=== PATIENT | male | born 1950 | race Caucasian/White ===

== ENCOUNTER 2017-02-26 19:42 | Inpatient (IN) | payer MEDICARE ==
[~2017-02-26] VITALS: Ht 182.9 cm; Wt 70.4 kg
[~2017-02-26 19:42] MED LIST: ASPI-621 PO; ATOR20TA9 PO; CARV25TA12 PO; CARV3.1212 PO; DOXY100T PO; FLUT1AER INH; FURO-92 PO; LISI-170 PO; METH4TAB2 PO; PRED20TA PO; SPIR1TAB PO; asprin PO
[2017-02-26] MEDS ORDERED: ALBUTEROL SULFATE 2.5 MG/3 ML NPPB ONE (20:00)
[2017-02-26] MEDS ORDERED: ASPIRIN 81 MG TABLET CHEW PO ONE (20:00)
[2017-02-26] MEDS ORDERED: ASPIRIN 81 MG TABLET CHEW ONE (20:16)
[2017-02-26 20:20] LABS: BLOOD UREA NITROGEN 25 mg/dL (7-18)
[2017-02-26 20:24] LABS: IS PT STATUS REG ER OR PRE ER? YES
[2017-02-26] MEDS ORDERED: SODIUM CHLORIDE FLUSH 10ML SYR IVF PRN (22:00)
[2017-02-26] MEDS ORDERED: CARV-39 PO (22:29)
[2017-02-26] MEDS ORDERED: HYDROCORTISONE 100 MG INJ. IVPush SCH (22:30)
[2017-02-26] MEDS ORDERED: LABETALOL 5MG/ML, 20ML IVPush PRN (23:00)
[2017-02-26] MEDS ORDERED: ACETAMINOPHEN 325 MG TABLET PO PRN (23:00)
[2017-02-26] MEDS: methylPREDNISolone SOD SUCC 40 MG/ML IVPush SCH (23:00)
[2017-02-26] MEDS ORDERED: DOCUSATE 100 MG CAPSULE PO PRN (23:00)
[2017-02-26] MEDS ORDERED: TEMAZEPAM 15 MG CAPSULE PO PRN (23:00)
[2017-02-26] MEDS: NICOTINE 7 MG/24 HR PATCH.TD24 TD SCH (23:56)
[2017-02-27] MEDS: CARVEDILOL 3.125 MG TABLET PO SCH ×3 (00:09→21:20)
[2017-02-27] MEDS: ENOXAPARIN 40 MG/0.4 ML SQ SCH ×2 (00:10→21:21)
[2017-02-27 00:26] VITALS: BP 142/88
[2017-02-27] MEDS ORDERED: ALBUTEROL/IPRATROPIUM 2.5MG/0.5MG, 3 ML ONE (00:38)
[2017-02-27 02:37] LABS: BLOOD UREA NITROGEN 24 mg/dL (7-18)
[2017-02-27 02:46] VITALS: BP 133/88
[2017-02-27 03:02] LABS: IS PT STATUS REG ER OR PRE ER? NO
[2017-02-27] MEDS: ALBUTEROL/IPRATROPIUM 2.5MG/0.5MG, 3 ML NPPB SCH ×4 (07:00→21:25)
[2017-02-27 08:00] VITALS: BP 135/84
[2017-02-27 08:33] LABS: IS PT STATUS REG ER OR PRE ER? NO
[2017-02-27] MEDS: LISINOPRIL 20 MG TABLET PO SCH (08:49)
[2017-02-27] MEDS: PANTOPROZOLE 40MG TABLET PO SCH (08:49)
[2017-02-27] MEDS: ASPIRIN 81 MG TABLET EC PO SCH (08:49)
[2017-02-27] MEDS: SPIRONOLACT/HCTZ 25/25MG TABLET PO SCH (08:49)
[2017-02-27] MEDS: FUROSEMIDE 40 MG/4 ML IV SCH (08:50)
[2017-02-27] MEDS ORDERED: FUROSEMIDE 40 MG TABLET PO SCH (09:00)
[2017-02-27] MEDS: FLUTICASONE/VILANTEROL 100-25MCG/INH INH SCH (11:47)
[2017-02-27] MEDS: methylPREDNISolone SOD SUCC 40 MG/ML IVPush SCH ×2 (11:48→21:20)
[2017-02-27 12:45] VITALS: BP 121/64
[2017-02-27] MEDS ORDERED: MAGNESIUM SULFATE PMX 2GM/50ML 50 ML IV ONE (13:30)
[2017-02-27] MEDS: ALUMINUM/MAG/SIMETHICONE 30 ML UDC PO PRN (18:01)
[2017-02-27 18:51] VITALS: BP 123/78
[2017-02-27] MEDS ORDERED: ATORVASTATIN 20 MG TABLET PO SCH (21:00)
[2017-02-27] MEDS: NICOTINE 7 MG/24 HR PATCH.TD24 TD SCH (21:20)
[2017-02-28 01:09] VITALS: BP 135/90
[2017-02-28] MEDS: ALUMINUM/MAG/SIMETHICONE 30 ML UDC PO PRN (01:17)
[2017-02-28 05:42] LABS: ASPARTATE AMINO TRANSFERASE 7 U/L (15-37); BLOOD UREA NITROGEN 35 mg/dL (7-18)
[2017-02-28] MEDS: PANTOPROZOLE 40MG TABLET PO SCH (06:47)
[2017-02-28 07:00] VITALS: BP 125/81
[2017-02-28] MEDS: ALBUTEROL/IPRATROPIUM 2.5MG/0.5MG, 3 ML NPPB SCH ×3 (07:00→14:07)
[2017-02-28] MEDS: FUROSEMIDE 40 MG/4 ML IV SCH (08:54)
[2017-02-28] MEDS: SPIRONOLACT/HCTZ 25/25MG TABLET PO SCH (08:55)
[2017-02-28] MEDS: ASPIRIN 81 MG TABLET EC PO SCH (08:55)
[2017-02-28] MEDS: FLUTICASONE/VILANTEROL 100-25MCG/INH INH SCH (08:55)
[2017-02-28] MEDS: CARVEDILOL 3.125 MG TABLET PO SCH (08:55)
[2017-02-28] MEDS: LISINOPRIL 20 MG TABLET PO SCH (08:55)
[2017-02-28] MEDS: methylPREDNISolone SOD SUCC 40 MG/ML IVPush SCH (11:24)
[2017-02-28] MEDS ORDERED: ALBU2.5V NEB (12:13)
[2017-02-28] MEDS ORDERED: SPIR1TAB PO (12:13)
[2017-02-28] MEDS ORDERED: FLUT1AER INH (12:13)
[2017-02-28] MEDS ORDERED: IPRA3AMP NPPB (12:13)
[2017-02-28] MEDS ORDERED: LISI-170 PO (12:13)
[2017-02-28] MEDS ORDERED: PRED10TA PO (12:13)
[2017-02-28] MEDS ORDERED: CARV3.1212 PO (12:13)
[2017-02-28] MEDS ORDERED: ATOR20TA9 PO (12:13)
[2017-02-28] MEDS ORDERED: MAGN400T26 PO (12:17)
== END 2017-02-28 15:34 | disposition home or self-care (01) | DRG 190 ==
LOC: ED 21:19 → EDIP 22:48 → 5SO 23:22
PROVIDERS: ADMIT Internal Medicine; ATTEND Internal Medicine
DX: J44.1 Chronic obstructive pulmonary disease with (acute) exacerbation (principal); I50.23 Acute on chronic systolic (congestive) heart failure; E87.1 Hypo-osmolality and hyponatremia; I47.2 Ventricular tachycardia; J96.10 Chronic respiratory failure, unspecified whether with hypoxia or hypercapnia; I11.0 Hypertensive heart disease with heart failure; J44.0 Chronic obstructive pulmonary disease with (acute) lower respiratory infection; E78.5 Hyperlipidemia, unspecified; F17.210 Nicotine dependence, cigarettes, uncomplicated; Z96.641 Presence of right artificial hip joint; I25.10 Atherosclerotic heart disease of native coronary artery without angina pectoris; I45.10 Unspecified right bundle-branch block; J20.9 Acute bronchitis, unspecified; Z79.82 Long term (current) use of aspirin; Z91.19 Patient's noncompliance with other medical treatment and regimen; Z99.81 Dependence on supplemental oxygen; Z71.6 Tobacco abuse counseling; Z82.49 Family history of ischemic heart disease and other diseases of the circulatory system
CPT/HCPCS: 36415; 71020; 80048; 80053; 82040; 83735; 83880; 84484; 85025; 93005; 94640; J1650; J1940; J7613; J7620; J1720; J2920; J3475; J7512

== ENCOUNTER 2017-03-17 13:54 | Inpatient (IN) | payer MEDICARE ==
[~2017-03-17] VITALS: Ht 182.9 cm; Wt 70.5 kg
[~2017-03-17 13:54] MED LIST changes: +ALBU2.5V NEB; +CARV-39 PO; +IPRA3AMP NPPB; +MAGN400T26 PO; +PRED10TA PO
[2017-03-17] MEDS ORDERED: LORazepam 1MG TABLET PO ONE (14:30)
[2017-03-17] MEDS ORDERED: ASPIRIN 81 MG TABLET CHEW PO ONE (14:30)
[2017-03-17 15:08] LABS: BLOOD UREA NITROGEN 38 mg/dL (7-18)
[2017-03-17 15:16] LABS: IS PT STATUS REG ER OR PRE ER? YES
[2017-03-17] MEDS ORDERED: LORazepam 1MG TABLET ONE (15:17)
[2017-03-17] MEDS ORDERED: ASPIRIN 81 MG TABLET CHEW ONE (15:17)
[2017-03-17] MEDS ORDERED: FURO40TA6 PO (15:28)
[2017-03-17] MEDS ORDERED: FUROSEMIDE 40 MG/4 ML ONE (16:26)
[2017-03-17] MEDS ORDERED: ENALAPRILAT 1.25 MG/ML, 2ML IVPush PRN (16:30)
[2017-03-17] MEDS ORDERED: ALBUTEROL SULFATE 2.5 MG/3 ML NPPB PRN (16:30)
[2017-03-17] MEDS ORDERED: DOCUSATE 100 MG CAPSULE PO PRN (16:30)
[2017-03-17] MEDS ORDERED: FUROSEMIDE 40 MG/4 ML IV ONE (16:30)
[2017-03-17] MEDS ORDERED: ONDANSETRON ODT 4 MG PO PRN (16:30)
[2017-03-17] MEDS ORDERED: GUAIFENESIN/DM 200-20MG, 10ML UDC PO PRN (16:30)
[2017-03-17] MEDS ORDERED: TRAZODONE 50MG TABLET PO PRN (16:30)
[2017-03-17] MEDS ORDERED: ENOXAPARIN 80 MG/0.8 ML SQ ONE ×2 (16:30→20:00)
[2017-03-17] MEDS ORDERED: ALBUTEROL SULFATE 2.5 MG/3 ML NEB PRN (17:00)
[2017-03-17 17:41] LABS: IS PT STATUS REG ER OR PRE ER? YES
[2017-03-17] MEDS ORDERED: ALBUTEROL/IPRATROPIUM 2.5MG/0.5MG, 3 ML NPPB SCH (20:00)
[2017-03-17 20:17] VITALS: BP 116/82
[2017-03-17] MEDS: FUROSEMIDE 20 MG TABLET PO SCH (20:20)
[2017-03-17] MEDS: ATORVASTATIN 20 MG TABLET PO SCH (20:20)
[2017-03-17] MEDS: NICOTINE 7 MG/24 HR PATCH.TD24 TD SCH (20:21)
[2017-03-17] MEDS: methylPREDNISolone SOD SUCC 125 MG/2 ML IVPush SCH (20:21)
[2017-03-17] MEDS: CARVEDILOL 3.125 MG TABLET PO SCH (20:21)
[2017-03-17] MEDS ORDERED: ENOXAPARIN 60 MG/0.6 ML SQ ONE (21:00)
[2017-03-18 00:03] LABS: IS PT STATUS REG ER OR PRE ER? NO
[2017-03-18 02:07] VITALS: BP 113/84
[2017-03-18] MEDS: ASPIRIN 325 MG TABLET EC PO SCH (04:42)
[2017-03-18] MEDS: methylPREDNISolone SOD SUCC 125 MG/2 ML IVPush SCH ×3 (04:42→20:10)
[2017-03-18 06:03] LABS: BLOOD UREA NITROGEN 39 mg/dL (7-18); IS PT STATUS REG ER OR PRE ER? NO
[2017-03-18 07:19] VITALS: BP 119/80
[2017-03-18] MEDS: LISINOPRIL 20 MG TABLET PO SCH (08:34)
[2017-03-18] MEDS: FUROSEMIDE 20 MG TABLET PO SCH ×2 (08:34→20:10)
[2017-03-18] MEDS: CARVEDILOL 3.125 MG TABLET PO SCH ×2 (08:34→20:10)
[2017-03-18] MEDS: MAGNESIUM OXIDE 400 MG TABLET PO SCH (08:34)
[2017-03-18] MEDS ORDERED: ASPIRIN 81 MG TABLET EC PO SCH (09:00)
[2017-03-18] MEDS: FLUTICASONE/VILANTEROL 100-25MCG/INH INH SCH (09:18)
[2017-03-18 12:49] VITALS: BP 129/88
[2017-03-18] MEDS: ENOXAPARIN 40 MG/0.4 ML SQ SCH (13:29)
[2017-03-18 18:51] VITALS: BP 105/64
[2017-03-18] MEDS: ATORVASTATIN 20 MG TABLET PO SCH (20:10)
[2017-03-18] MEDS: NICOTINE 7 MG/24 HR PATCH.TD24 TD SCH (20:11)
[2017-03-18] MEDS ORDERED: ALUMINUM/MAG/SIMETHICONE 30 ML UDC PO ONE (21:00)
[2017-03-19 00:34] VITALS: BP 128/88
[2017-03-19] MEDS: methylPREDNISolone SOD SUCC 125 MG/2 ML IVPush SCH ×3 (04:43→17:30)
[2017-03-19] MEDS: ASPIRIN 325 MG TABLET EC PO SCH (04:43)
[2017-03-19 05:17] LABS: BLOOD UREA NITROGEN 38 mg/dL (7-18)
[2017-03-19 07:25] VITALS: BP 118/83
[2017-03-19] MEDS: FLUTICASONE/VILANTEROL 100-25MCG/INH INH SCH (08:27)
[2017-03-19] MEDS: MAGNESIUM OXIDE 400 MG TABLET PO SCH (08:28)
[2017-03-19] MEDS: CARVEDILOL 3.125 MG TABLET PO SCH ×2 (08:28→20:55)
[2017-03-19] MEDS: LISINOPRIL 20 MG TABLET PO SCH (08:28)
[2017-03-19] MEDS ORDERED: REGADENOSON 0.4 MG/5 ML SYRINGE ONE (08:51)
[2017-03-19] MEDS ORDERED: SPIRONOLACT/HCTZ 25/25MG TABLET PO SCH (09:00)
[2017-03-19] MEDS: FUROSEMIDE 20 MG TABLET PO SCH ×2 (11:29→20:55)
[2017-03-19] MEDS: ENOXAPARIN 40 MG/0.4 ML SQ SCH (12:56)
[2017-03-19 13:20] VITALS: BP 106/61
[2017-03-19] MEDS ORDERED: CALCIUM CARBONATE 500 MG TAB.CHEW PO PRN (15:30)
[2017-03-19] MEDS ORDERED: OMEPRAZOLE 20 MG CAPSULE.DR PO ONE (17:30)
[2017-03-19 20:17] VITALS: BP 107/64
[2017-03-19] MEDS: ATORVASTATIN 20 MG TABLET PO SCH (20:55)
[2017-03-19] MEDS: NICOTINE 7 MG/24 HR PATCH.TD24 TD SCH (20:56)
[2017-03-19] MEDS ORDERED: MAALOX/HYOSCYAMINE/LIDOCAINE 45 ML BOTTLE PO ONE (21:30)
[2017-03-20 00:59] VITALS: BP 100/60
[2017-03-20] MEDS: methylPREDNISolone SOD SUCC 125 MG/2 ML IVPush SCH ×2 (01:24→08:40)
[2017-03-20 05:05] LABS: BLOOD UREA NITROGEN 38 mg/dL (7-18)
[2017-03-20] MEDS: ASPIRIN 325 MG TABLET EC PO SCH (06:24)
[2017-03-20 06:56] VITALS: BP 92/56
[2017-03-20] MEDS: CARVEDILOL 3.125 MG TABLET PO SCH (08:40)
[2017-03-20] MEDS: FUROSEMIDE 20 MG TABLET PO SCH (08:40)
[2017-03-20] MEDS: MAGNESIUM OXIDE 400 MG TABLET PO SCH (08:41)
[2017-03-20] MEDS: LISINOPRIL 20 MG TABLET PO SCH (08:41)
[2017-03-20] MEDS: FLUTICASONE/VILANTEROL 100-25MCG/INH INH SCH (08:41)
[2017-03-20] MEDS: ENOXAPARIN 40 MG/0.4 ML SQ SCH (13:00)
[2017-03-20 15:34] VITALS: BP 115/76
== END 2017-03-20 15:55 | disposition home or self-care (01) | DRG 682 ==
LOC: ED 16:02 → EDIP 16:03 → ED 16:10 → 5SO 18:45 → DCLOUNGE 03-20 15:40
DX: N17.0 Acute kidney failure with tubular necrosis (principal); J96.20 Acute and chronic respiratory failure, unspecified whether with hypoxia or hypercapnia; J44.1 Chronic obstructive pulmonary disease with (acute) exacerbation; I50.22 Chronic systolic (congestive) heart failure; E78.5 Hyperlipidemia, unspecified; I11.0 Hypertensive heart disease with heart failure; T38.0X5A Adverse effect of glucocorticoids and synthetic analogues, initial encounter; Z96.641 Presence of right artificial hip joint; R79.89 Other specified abnormal findings of blood chemistry; D72.829 Elevated white blood cell count, unspecified; F17.200 Nicotine dependence, unspecified, uncomplicated; F41.9 Anxiety disorder, unspecified; I25.10 Atherosclerotic heart disease of native coronary artery without angina pectoris; I25.2 Old myocardial infarction; Z91.14 Patient's other noncompliance with medication regimen; Z91.19 Patient's noncompliance with other medical treatment and regimen; Z99.81 Dependence on supplemental oxygen
CPT/HCPCS: 36415; 71010; 78452; 80048; 82040; 83735; 83880; 84100; 84443; 84484; 85025; 93005; 93017; 94640; 96374; J1650; J1940; J2785; J7620; Q0162; A9502; C9898; J2930